=== PATIENT | male | born 1955 ===

== ENCOUNTER 2020-06-30 08:12 | Outpatient (REF) | payer OTHER, SELFPAY ==
[2020-06-30 09:23] LABS: Hematocrit 45.2 % (42-52); Hemoglobin 15.4 g/dl (14.0-18.0); Mean Corpuscular HGB Conc 34.1 g/dl (31.0-36.0); Mean Corpuscular Hemoglobin 31.3 pg (27.0-33.0); Mean Corpuscular Volume 91.9 fL (80-98); Mean Platelet Volume 11.8 fL (9.4-12.4); Platelet Count 240 X10*3/uL (160-400); Red Blood Count 4.92 X10*6/uL (4.60-5.80); Red Cell Distribution Width 13.1 % (11.0-16.0); White Blood Count 5.8 X10*3/uL (4.8-10.8)
[2020-06-30 09:49] LABS: Alanine Aminotransferase 33 U/L (0-40); Albumin Level 4.9 g/dL (3.5-5.0); Alkaline Phosphatase 115 U/L (39-117); Anion Gap 12 (12-20); Aspartate Amino Transferase 26 U/L (5-37); Bilirubin Total 1.4 mg/dL (0.0-1.0); Blood Urea Nitrogen 14 mg/dL (9-16); Calcium 9.3 mg/dL (8.4-10.2); Carbon Dioxide 27 mmol/L (22-29); Chloride 104 mmol/L (96-108); Cholesterol 268 mg/dL; Estimated Glomerular Filt Rate > 60; Glucose Fasting 101 mg/dL (60-99); HDL Cholesterol 40 mg/dL; LDL Cholesterol Calculated 190 mg/dl; Potassium 4.2 mmol/L (3.3-5.1); Sodium 139 mmol/L (135-145); Total Protein 7.8 g/dL (6.5-8.0); Triglycerides 190 mg/dL
[2020-06-30 10:10] LABS: Prostate Specific Antigen Scr 0.74 ng/mL (<0.05-4.0); TSH reflex Free T4 0.82 uIU/mL (0.32-4.0)
[2020-06-30 10:17] LABS: Estimated Average Glucose 120 mg/dL; Hemoglobin A1c % 5.8 %
== END 2020-06-30 08:13 | disposition home or self-care (01) ==
LOC: HO.LAB 08:12
PROVIDERS: Visit Provider Physician Assistant
DX: I10 Essential (primary) hypertension (principal); Z13.1 Encounter for screening for diabetes mellitus; Z13.220 Encounter for screening for lipoid disorders; Z13.29 Encounter for screening for other suspected endocrine disorder; Z12.5 Encounter for screening for malignant neoplasm of prostate
CPT/HCPCS: 36415; 80053; 80061; 83036; 84153; 84443; 85027

== ENCOUNTER → 2020-07-06 14:36 | Outpatient (BNVA) | payer OTHER, SELFPAY | PROVIDERS: Visit Provider Nurse Practitioner Family ==

== ENCOUNTER 2020-08-22 07:57 | Day surgery (SDC) | payer OTHER, SELFPAY ==
[2020-08-15 14:00] VITALS: BMI 29.1
--- NOTE | 2020-08-18 08:44 | P.CONAN_ITS ---
Documented by User: Kaleigh Farley 08/18/20 08:45 HPI - Anesthesia Eval Consult details Narrative: 64yo M for Colonoscopy PMFSH Active Problems Active Problems: All Active Problems (Updated 08/15/20 @ 13:41 by Claudia Rae) Annual physical exam (Acute) MDD (major depressive disorder) (Acute) Screening for diabetes mellitus (DM) (Acute) Screening for hypercholesterolemia (Acute) Screening for hypothyroidism (Acute) Colon cancer screening (Acute) Schizoaffective disorder (Acute) Past Medical History Medical History Depression Helicobacter pylori (H. pylori) Schizophrenia Family History Family History Father Emphysema lung Mother Kidney disease Sister Hypertension Cancer Brother No problems noted. Maternal Uncle Cancer Maternal Aunt Cancer Surgical History Surgical History H/O colonoscopy History of appendectomy History of esophagogastroduodenoscopy (EGD) Social History Social History Household Members: None Are you a primary aged or disabled care worker to a significant other at home: No Do you presently have visiting nurse or other home services: No Alcohol intake: current Alcohol intake frequency: does not drink Smoking Status: Former smoker Advance Directives: No Advance Directives Information Provided: No Advance Directives on File: No Recently lost weight without trying: No Current occupational status: retired [employer] Allergies Allergy/AdvReac Type Severity Reaction Status Date / Time No Known Allergies Allergy Verified 08/15/20 13:39 Home Medications Medication Instructions Recorded Confirmed Last Taken Type quetiapine 200 mg tablet 200 mg PO BEDTIME 06/15/20 08/15/20 Unknown History risperidone 1 mg tablet 1 mg PO BEDTIME 06/15/20 08/15/20 Unknown History sertraline 50 mg tablet 50 mg PO DAILY 06/15/20 08/15/20 Unknown History Exam Exam Date and Time: August 18, 2020 0844 Height,Weight and Vital Signs: Height 5 ft 7 in Weight 84.368 kg Assessment and Plan Assessment Anesthesia Assessment: Chart Reviewed Documented by User: Liset Young 08/22/20 08:57 PMFSH Past Medical History Medical History Depression Helicobacter pylori (H. pylori) Schizophrenia Family History Family History Father Emphysema lung Mother Kidney disease Sister Hypertension Cancer Brother No problems noted. Maternal Uncle Cancer Maternal Aunt Cancer Surgical History Surgical History H/O colonoscopy History of appendectomy History of esophagogastroduodenoscopy (EGD) Social History Social History Household Members: None Are you a primary aged or disabled care worker to a significant other at home: No Do you presently have visiting nurse or other home services: No Alcohol intake: current Alcohol intake frequency: does not drink Smoking Status: Former smoker Advance Directives: No Advance Directives Information Provided: No Advance Directives on File: No Recently lost weight without trying: No Current occupational status: retired Meds Allergies Allergy/AdvReac Type Severity Reaction Status Date / Time No Known Allergies Allergy Verified 08/15/20 13:39 Home Medications Medication Instructions Recorded Confirmed Last Taken Type quetiapine 200 mg tablet 200 mg PO BEDTIME 06/15/20 08/15/20 Unknown History risperidone 1 mg tablet 1 mg PO BEDTIME 06/15/20 08/15/20 Unknown History sertraline 50 mg tablet 50 mg PO DAILY 06/15/20 08/15/20 Unknown History Exam Airway Mallampati Class: II TM Dist: >3cm Neck ROM: Full
[2020-08-22 08:55] VITALS: BP 118/71; PULSE 63; RESP 18; TEMP 36.6; O2SAT 99
[2020-08-22] MEDS: Lactated Ringers 1,000 ML 100 ML IVCONT (09:01)
--- NOTE | 2020-08-22 09:51 | P.OP_ITS ---
Operative Note Operative Note Date of Service: 08/22/20 Narrative: Pre-op diagnosis: Colon cancer screening Post-op diagnosis: other (Internal hemorrhoids, fair to poor prep) Procedure: COLONOSCOPY TILL CECUM Consent: Indications for the procedure and potential complications of bleeding, perforation, reaction to medications and missed diagnosis were discussed with the patient and informed consent was obtained. Instrument: Olympus PCF H 190 L variable stiffness pediatric colonoscope Monitoring: Vital signs and clinical assessment, intermittent blood pressure monitoring, continuous EKG monitoring, Pulse oximetry and Carbon Dioxide monitoring were done throughout the procedure. Colon withdrawl time was 20 minutes. Procedure: The patient was placed in the left lateral decubitis position and pre-procedure medications were administered. After a digital rectal examination of the ano-rectum, the video colonoscope was inserted into the rectum and advanced through the colon to the cecum. The colonoscope was slowly withdrawn in a retrograde panoramic fashion and the colon mucosa was carefully examined including a retroflexed view of the rectum. Findings and interventions are described below. Procedure Difficulty: Without difficulty Findings: Terminal Ileum: Not evaluated Cecum: Partially evaluated to to fair prep (poor in some areas of the colon) Ascending Colon: Partially evaluated to to fair prep (poor in some areas of the colon) Transverse Colon: Partially evaluated to to fair prep (poor in some areas of the colon) Descending Colon: Partially evaluated to to fair prep (poor in some areas of the colon) Sigmoid Colon: Partially evaluated to to fair prep (poor in some areas of the colon) Rectum: Partially evaluated to to fair prep (poor in some areas of the colon) Ano-rectum: Moderate internal hemorrhoids Colon preparation: Fair and poor in some areas of the colon despite copious irrigation Impression and Post Procedure Diagnosis: Colonoscopy Findings: No polyps were detected. Fair and poor in some areas of the colon despite copious irrigation Moderate hemorrhoids on retroflexed exam. Plan: Await pathology results Patient has an appointment on 09/19/20 in the [facility] with Yenny Peralta FNP-BC. Check a stool FIT test and if negative repeat Colonoscopy in 5 years due to fair to poor prep. Above findings were reviewed with the patient Surgeon: Марина Bailey MD Anesthesia: MAC (Leyla Chahal CRNA) Mold Press Operator: Hermila Staples Estimated blood loss (mL): 0 Pathology: none sent Condition: stable Disposition: PACU
--- NOTE | 2020-08-22 09:51 | MHC.SHP ---
Pre-Procedural Eval Section A The patient is an INPATIENT: No The History & Physical has been completed within 30 days and I have reviewed it.: No Section B Chief Complaint: Screening Details of Present Illness: Colon cancer screening Relevant Family History (Specify if Yes): Yes Relevant Social History: None Present Medications: see Short Stay Collaborative assessment Medical History: Significant History (H Pylori infection) History of Previous Operations: Relevant previous surgery/procedure and date(s) (H/O colonoscopy History of appendectomy History of esophagogastroduodenoscopy (EGD)) Allergies: Allergies Allergy/AdvReac Type Severity Reaction Status Date / Time No Known Allergies Allergy Verified 08/15/20 13:39 Review of Systems Sugical H&P ROS: Negative: Constitution, Cardiovascular, Respiratory and Gastrointestinal Exam Surgical H&P Exam: Normal: Heart, Normal: Lungs, Normal: Extremities and Normal: Abdomen Plan Diagnosis/Plan: Unchanged I have reviewed the history and physical and performed a pertinent physical examination on my patient. No changes have occurred unless specified.
[2020-08-22 10:31] VITALS: BP 80/48; PULSE 76; RESP 14; TEMP 36.9; O2SAT 96
[2020-08-22 10:46] VITALS: BP 106/71; PULSE 74; RESP 18; O2SAT 99
[2020-08-22 11:01] VITALS: BP 112/86; PULSE 62; RESP 18; O2SAT 97
== END 2020-08-22 11:30 ==
LOC: HO.SSS 07:57
PROVIDERS: Visit Provider Internal Medicine Gastroenterology
PROC: 0DJD8ZZ Inspection of Lower Intestinal Tract, Via Natural or Artificial Opening Endoscopic (ICD-10-PCS; CPT 45378; principal; 2020-08-22 09:10)
DX: Z12.11 Encounter for screening for malignant neoplasm of colon (principal); K64.8 Other hemorrhoids; F20.9 Schizophrenia, unspecified; Z86.19 Personal history of other infectious and parasitic diseases; Z87.891 Personal history of nicotine dependence; Z79.899 Other long term (current) drug therapy
CPT/HCPCS: 45378

== ENCOUNTER → 2020-09-19 14:33 | Outpatient (BNVA) | payer MEDICARE, SELFPAY | PROVIDERS: Visit Provider Nurse Practitioner Family | DX: Z98.890 Other specified postprocedural states (principal) | CPT/HCPCS: Q3014 ==

== ENCOUNTER → 2020-11-27 13:19 | Outpatient (BNVA) | payer MEDICARE, SELFPAY | PROVIDERS: Visit Provider Nurse Practitioner Family ==

== ENCOUNTER 2021-07-25 10:31 | Outpatient (REF) | payer MEDICARE, SELFPAY ==
[2021-07-25 11:07] LABS: Hematocrit 45.6 % (42.0-52.0); Hemoglobin 15.6 g/dl (14.0-18.0); Mean Corpuscular HGB Conc 34.2 g/dl (31.0-36.0); Mean Corpuscular Volume 90.7 fL (80.0-98.0); Mean Platelet Volume 11.5 fL (9.4-12.4); Platelet Count 217 X10*3/uL (160-400); Red Blood Count 5.03 X10*6/uL (4.60-5.80); Red Cell Distribution Width 13.2 % (11.0-16.0); White Blood Count 5.5 X10*3/uL (4.8-10.8)
[2021-07-25 11:16] LABS: Estimated Average Glucose 120 mg/dL; Hemoglobin A1c % 5.8 %
[2021-07-25 12:05] LABS: Alanine Aminotransferase 29 U/L (0-40); Albumin Level 4.5 g/dL (3.5-5.0); Alkaline Phosphatase 99 U/L (39-117); Anion Gap 12 (12-20); Aspartate Amino Transferase 25 U/L (5-37); Bilirubin Total 1.4 mg/dL (0.0-1.0); Blood Urea Nitrogen 14 mg/dL (9-16); Carbon Dioxide 25 mmol/L (22-29); Chloride 104 mmol/L (96-108); Cholesterol 251 mg/dL; Estimated Glomerular Filt Rate > 60; Glucose Fasting 111 mg/dL (60-99); HDL Cholesterol 39 mg/dL; LDL Cholesterol Calculated 162 mg/dl; Potassium 4.4 mmol/L (3.3-5.1); Sodium 137 mmol/L (135-145); Total Protein 7.9 g/dL (6.5-8.0); Triglycerides 253 mg/dL
[2021-07-25 12:49] LABS: TSH reflex Free T4 0.82 uIU/mL (0.32-4.0)
[2021-07-26 15:35] LABS: Prostate Specific Antigen Scr 1.15 ng/mL (<0.05-4.0)
== END 2021-07-25 10:32 | disposition home or self-care (01) ==
LOC: HO.LAB 10:31
PROVIDERS: PCP Physician Assistant; Visit Provider Physician Assistant
DX: Z12.5 Encounter for screening for malignant neoplasm of prostate (principal); Z13.1 Encounter for screening for diabetes mellitus; E78.2 Mixed hyperlipidemia
CPT/HCPCS: 36415; 80053; 80061; 83036; 84153; 84443; 85027

== ENCOUNTER 2021-12-30 16:42 | Emergency (ER) | payer MEDICARE, MEDICAID, SELFPAY ==
[2021-12-30 16:51] VITALS: BP 144/85; PULSE 79; RESP 18; TEMP 36.7; O2SAT 95; BMI 26.6
--- NOTE | 2021-12-30 18:14 | ED.NAVMDI ---
HPI - Nausea/Vomiting/Diarrhea General Chief complaint: Nausea/Vomiting/Diarrhea Stated complaint: Vomiting/Hiccups Time Seen by Provider: 12/30/21 18:14 Source: patient and family Mode of arrival: ambulatory Limitations: no limitations History of Present Illness HPI Narrative: Patient history of schizophrenia been having hiccups for last 5 days followed by vomiting 6 to 7 times a day no diarrhea no abdominal pain never had similar complaints in the past , unable to hold any liquids or solids or his medication down because of hiccups and vomiting Related Data Home Medications Medication Instructions Recorded Confirmed quetiapine 200 mg tablet 200 mg PO BEDTIME 06/15/20 06/18/21 risperidone 1 mg tablet 1 mg PO BEDTIME 06/15/20 06/18/21 sertraline 50 mg tablet 50 mg PO DAILY 06/15/20 06/18/21 Previous Rx's Medication Instructions Recorded baclofen 10 mg tablet 10 mg PO TID PRN hiccups #20 tabs 12/30/21 omeprazole 40 mg capsule,delayed 40 mg PO DAILY #30 caps 12/30/21 release Allergies Allergy/AdvReac Type Severity Reaction Status Date / Time No Known Allergies Allergy Verified 12/30/21 16:50 Review of Systems Review of Systems: Yes all other systems are reviewed and are negative PMFSH Past Medical History Medical History Depression Helicobacter pylori (H. pylori) Schizophrenia Surgical History H/O colonoscopy History of appendectomy History of esophagogastroduodenoscopy (EGD) Family History Family History Father Emphysema lung Mother Kidney disease Sister Hypertension Cancer Brother No problems noted. Maternal Uncle Cancer Maternal Aunt Cancer Social History Social History Household Members: None Are you a primary career center director to a significant other at home: No Do you presently have visiting nurse or other home services: No Alcohol intake: current Alcohol intake frequency: does not drink Patient Tobacco Use Status: Former Tobacco user Quit Date: 1969 Use of substances other than those prescribed or required for medical reasons: Yes Substance Use Type: Crack/Cocaine Advance Directives: No Advance Directives Information Provided: No Current occupational status: retired Physical Exam Vital Signs: Vital Signs: Last Vital Signs Temp 98.4 F 12/30/21 20:02 Pulse 64 12/30/21 20:02 Resp 18 12/30/21 20:02 BP 142/83 H 12/30/21 20:02 Pulse Ox 96 12/30/21 20:02 O2 Del Method 12/30/21 20:02 BMI result Body Mass Index 26.6 Appearance: Alert. Oriented X3. No acute distress. Eyes: PERRLA, No Nystagmus no pallor or icterus ENT: Pharynx normal. Oral Mucosa moist Neck: Normal inspection. Neck supple. CVS: Normal heart rate and rhythm. Pulses normal. Respiratory: No respiratory distress. Equal air entry bilateral, no wheezing/rales/rhonchi Abdomen: Soft and nontender. Bowel sounds are present, no mass palpable, no CVA tenderness Skin: Skin warm and dry. Normal skin color. Normal skin turgor. Extremities: No lower extremity edema. No calf tenderness Neuro: Oriented X 3. No motor deficit. No sensory deficit.No cerebellar signs , cranial nerves II-XII intact MDM - Nausea/Vomiting/Diarrhea MDM Narrative Medical decision making narrative: Patient with intractable hiccups improved after IV Compazine and baclofen patient able to tolerate p.o. fluids will discharge patient home on baclofen tablets Lab Data Attestation: I reviewed the patient's lab results. Result diagrams: 12/30/21 18:40 12/30/21 19:42 Labs: Lab Results 12/30/21 12/30/21 12/30/21 Range/Units 18:40 18:40 19:42 WBC 10.5 (4.8-10.8) X10*3/uL RBC 5.16 (4.60-5.80) X10*6/uL Hgb 16.1 (14.0-18.0) g/dl Hct 46.0 (42.0-52.0) % MCV 89.1 (80.0-98.0) fL MCH 31.2 (27.0-33.0) pg MCHC 35.0 (31.0-36.0) g/dl RDW 12.5 (11.0-16.0) % Plt Count 241 (160-400) X10*3/uL MPV 11.4 (9.4-12.4) fL Immature Gran % (Auto) 0.4 (0.0-0.4) % Neut % (Auto) 68.2 (45-73) % Lymph % (Auto) 19.0 L (20-40) % [place] % (Auto) 11.1 H (2-11) % Eos % (Auto) 0.6 (0-4) % Baso % (Auto) 0.7 (0-2) % Lymph # (Auto) 2.0 (1.2-4.9) X10*3/uL [place] # (Auto) 1.2 (0.1-1.2) X10*3/uL Eos # (Auto) 0.1 (0.0-0.4) X10*3/uL Baso # (Auto) 0.1 (0.0-0.2) X10*3/uL Abs Immat Gran (auto) 0.04 H (0.00-0.03) X10*3/uL Absolute Neuts (auto) 7.2 (2.0-8.3) x10*3/uL Absolute Nucleated RBC 0.000 (0.0-0.012) X10*3/uL Nucleated RBC % (auto) 0.0 (0.0-0.2) /100WBC Sodium 139 (135-145) mmol/L Potassium 3.3 D (3.3-5.1) mmol/L Chloride 102 (96-108) mmol/L Carbon Dioxide 26 (22-29) mmol/L Anion Gap 14 (12-20) BUN 10 (9-16) mg/dL Creatinine 1.10 (0.5-1.4) mg/dL Estim Creat Clear Calc 61.7 Estimated GFR > 60 Random Glucose 104 (60-115) mg/dL Calcium 8.3 L D (8.4-10.2) mg/dL Magnesium 2.0 (1.6-2.6) mg/dL Total Bilirubin 1.3 H (0.0-1.0) mg/dL AST 35 (5-37) U/L ALT 25 (0-40) U/L Alkaline Phosphatase 84 (39-117) U/L Total Protein 7.0 (6.5-8.0) g/dL Albumin 4.2 (3.5-5.0) g/dL Lipase 27 (8-78) U/L COVID-19 ([facility]ID) Negative (Negative) COVID-19 Clin Com See Note Discharge Plan Discharge Clinical Impression: Intractable hiccups Patient Disposition: Home, Self-Care Instructions: Hiccups (ED) Additional Instructions: Take medications as prescribed for hiccups Follow with PCP as needed Prescriptions: New baclofen 10 mg tablet 10 mg PO TID PRN (Reason: hiccups) Qty: 20 0RF omeprazole 40 mg capsule,delayed release(DR/EC) 40 mg PO DAILY Qty: 30 0RF No Action risperidone 1 mg tablet 1 mg PO BEDTIME sertraline 50 mg tablet 50 mg PO DAILY quetiapine 200 mg tablet 200 mg PO BEDTIME Interventions: ED Discharge Assessment Last Done: 12/30/21 22:44 Discharge Date/Time: 12/30/21 22:45 Print Language: Maldivian
[2021-12-30 18:28] VITALS: BP 135/83; PULSE 78; RESP 20; TEMP 37.3; O2SAT 95
[2021-12-30] MEDS: Prochlorperazine Edisylate 10 MG/2 ML VIAL IVPUSH (18:42)
[2021-12-30] MEDS: 0.9 % Sodium Chloride 1,000 ML 999 ML IV (18:42)
[2021-12-30 18:45] LABS: MANUAL DIFF FLAG NO
[2021-12-30 19:04] LABS: Basophils Absolute Auto 0.1 X10*3/uL (0.0-0.2); Basophils Percent Auto 0.7 % (0-2); Eosinophils Absolute Auto 0.1 X10*3/uL (0.0-0.4); Eosinophils Percent Auto 0.6 % (0-4); Hemoglobin 16.1 g/dl (14.0-18.0); Imm Gran Abs Auto 0.04 X10*3/uL (0.00-0.03); Imm Gran Pct Auto 0.4 % (0.0-0.4); Mean Corpuscular Hemoglobin 31.2 pg (27.0-33.0); Mean Corpuscular Volume 89.1 fL (80.0-98.0); Mean Platelet Volume 11.4 fL (9.4-12.4); Monocytes Absolute Auto 1.2 X10*3/uL (0.1-1.2); Monocytes Percent Auto 11.1 % (2-11); Neutrophils Absolute Auto 7.2 x10*3/uL (2.0-8.3); Neutrophils Percent Auto 68.2 % (45-73); Platelet Count 241 X10*3/uL (160-400); Red Blood Count 5.16 X10*6/uL (4.60-5.80); Red Cell Distribution Width 12.5 % (11.0-16.0); White Blood Count 10.5 X10*3/uL (4.8-10.8)
[2021-12-30 19:06] LABS: COVID-19 Test Negative (Negative); IDNOW Serial# 16C4AD1C
[2021-12-30 20:02] VITALS: BP 142/83; PULSE 64; RESP 18; TEMP 36.9; O2SAT 96
[2021-12-30 20:04] LABS: Alanine Aminotransferase 25 U/L (0-40); Albumin Level 4.2 g/dL (3.5-5.0); Alkaline Phosphatase 84 U/L (39-117); Anion Gap 14 (12-20); Aspartate Amino Transferase 35 U/L (5-37); Bilirubin Total 1.3 mg/dL (0.0-1.0); Blood Urea Nitrogen 10 mg/dL (9-16); Calcium 8.3 mg/dL (8.4-10.2); Carbon Dioxide 26 mmol/L (22-29); Chloride 102 mmol/L (96-108); Creatinine Clr Calc Pharmacy 61.7; Estimated Glomerular Filt Rate > 60; Glucose Random 104 mg/dL (60-115); Lipase 27 U/L (8-78); Potassium 3.3 mmol/L (3.3-5.1); Sodium 139 mmol/L (135-145)
[2021-12-30] MEDS: Pantoprazole Sodium 40 MG/10 ML VIAL IVPUSH (20:56)
[2021-12-30] MEDS: Baclofen 10 MG TABLET PO (21:28)
[2021-12-30] MEDS: Metoclopramide HCl 10 MG/2 ML VIAL IVPUSH (21:28)
[2021-12-30] MEDS: Lidocaine HCl Viscous 2 % 15 ML SOLUTION MUCOUS MEM (21:28)
== END 2021-12-30 22:45 | disposition home or self-care (01) ==
PROVIDERS: Emergency Provider Internal Medicine; PCP Physician Assistant
DX: R11.2 Nausea with vomiting, unspecified (principal); R06.6 Hiccough; Z79.899 Other long term (current) drug therapy; Z20.822 Contact with and (suspected) exposure to COVID-19; Z87.891 Personal history of nicotine dependence
CPT/HCPCS: 80053; 83690; 83735; 85025; 87635; 96374; 96375; 96376; 99284; J2765

== ENCOUNTER 2022-07-30 08:45 | Outpatient (REF) | payer MEDICARE, MEDICAID, SELFPAY ==
[2022-07-30 09:40] LABS: Hematocrit 43.9 % (42.0-52.0); Hemoglobin 15.1 g/dl (14.0-18.0); Mean Corpuscular HGB Conc 34.4 g/dl (31.0-36.0); Mean Corpuscular Hemoglobin 30.8 pg (27.0-33.0); Mean Corpuscular Volume 89.4 fL (80.0-98.0); Mean Platelet Volume 11.5 fL (9.4-12.4); Platelet Count 198 X10*3/uL (160-400); Red Blood Count 4.91 X10*6/uL (4.60-5.80); Red Cell Distribution Width 13.5 % (11.0-16.0); White Blood Count 6.5 X10*3/uL (4.8-10.8)
[2022-07-30 10:28] LABS: Alanine Aminotransferase 40 U/L (0-40); Albumin Level 4.3 g/dL (3.5-5.0); Alkaline Phosphatase 99 U/L (39-117); Anion Gap 14 (12-20); Aspartate Amino Transferase 30 U/L (5-37); Blood Urea Nitrogen 10 mg/dL (9-16); Calcium 9.4 mg/dL (8.4-10.2); Carbon Dioxide 24 mmol/L (22-29); Chloride 105 mmol/L (96-108); Cholesterol 278 mg/dL; Estimated Glomerular Filt Rate > 60; Glucose Fasting 101 mg/dL (60-99); HDL Cholesterol 39 mg/dL; LDL Cholesterol Calculated 169 mg/dl; Potassium 4.1 mmol/L (3.3-5.1); Sodium 139 mmol/L (135-145); Total Protein 7.4 g/dL (6.5-8.0); Triglycerides 352 mg/dL
[2022-07-30 10:36] LABS: Prostate Specific Antigen Scr 1.02 ng/mL (<0.05-4.0); TSH reflex Free T4 1.33 uIU/mL (0.32-4.0)
== END 2022-07-30 08:46 | disposition home or self-care (01) ==
LOC: HO.LAB 08:45
PROVIDERS: PCP Physician Assistant; Visit Provider Physician Assistant
DX: E78.2 Mixed hyperlipidemia (principal); Z13.29 Encounter for screening for other suspected endocrine disorder; Z12.5 Encounter for screening for malignant neoplasm of prostate
CPT/HCPCS: 36415; 80053; 80061; 84153; 84443; 85027

== ENCOUNTER 2023-07-21 10:17 | Outpatient (AMB) | payer OTHER, SELFPAY ==
--- NOTE | 2023-07-21 10:32 | MHC.PC.OV ---
Vital Signs 07/21/23 10:48 Height 5 ft 7 in Weight 174 lb BMI 27.2 BP 102/70 Blood Pressure Location Lt brachial Position Sitting Pulse 70 Pulse Source Pulse Oximeter Pulse Oximetry (%) 96 Oxygen Delivery Method Room Air Intake Visit Reasons: Annual Exam Intake Note: Patient is here today for a physical. Manager Integrity Required: No Accompanied by: sister-Deirdre Allergies No Known Allergies Allergy (Verified 07/21/23 10:56) Medication List - Last Reconciled 07/21/23 by Yakov Dai PA-C quetiapine 200 mg PO BEDTIME risperidone 2 mg PO BEDTIME sertraline 50 mg PO DAILY Tobacco use date assessed: 07/21/23 Fall risk assessment: No Falls in past year Last assessed Fall Risk: 07/21/23 Dental Screening Dental Screen Date: 07/21/23 Did you have a dental visit in the last 12 months?: Yes Did you have a dental problem in the last 6 months where you did not have access to dental care?: No Was dental information given to patient?: Patient has dentist HPI Annual Exam HPI Details Patient is a 67 -year-old male here today for annual physical. ?Past medical history significant for depression, schizophrenia. Today he presents with his sister whom is concerned about his mental health. She reports he has been feeling very paranoid as of late to the point he has not been staying at his own apartment due to feeling that someone is after him. She does admit that maximal is somewhat noncompliant with his medication and over the last 2 weeks have been helping him take his medication on a daily basis. They are asking for help at home with a RESIDENTIAL CONSTRUCTION INSTRUCTOR and or visiting nurse to help him administer medication. She will speak with his psychiatrist about changing his antipsychotic .. Vaccine : UTD with flu vaccine, TDap, up-to-date with COVID vaccine, up-to-date with shingles vaccine needs pneumonia vaccine. . .. Colonoscopy:? Patient received screening colonoscopy in 2020 repeat 5 years . Laboratory Tests 07/25/21 12/30/21 10:51 18:40 RBC 5.16 Triglycerides 253 Cholesterol 251 PFSH Medical History Depression Schizophrenia Helicobacter pylori (H. pylori) Surgical History H/O colonoscopy History of esophagogastroduodenoscopy (EGD) History of appendectomy Family History Father Emphysema lung Mother Kidney disease Sister Hypertension Cancer Brother No problems noted. Maternal Uncle Cancer Maternal Aunt Cancer Social History (Updated 07/21/23 @ 11:00 by Yakov Dai PA-C) Household Members: None Housing: Apartment Are you a primary palliative care coordinator to a significant other at home: No Do you presently have visiting nurse or other home services: No Alcohol intake: never Patient Tobacco Use Status: Former Tobacco user Quit Date: 1969 e-Cigarette/Vaping Use: Never Used Substance Use Type: Crack/Cocaine service: No Current occupational status: retired Cognitive needs: No Hearing needs: No Vision needs: No Questionnaire PHQ-9 Over the last 2 weeks, how often have you been bothered by any of the following problems? 1. Little interest or pleasure in doing things: not at all 2. Feeling down, depressed, or hopeless: not at all 3. Trouble falling or staying asleep, or sleeping too much: not at all 4. Feeling tired or having little energy: not at all 5. Poor appetite or overeating: not at all 6. Feeling bad about yourself - or that you are a failure or have let yourself or your family down: not at all 7. Trouble concentrating on things, such as reading the newspaper or watching television: not at all 8. Moving or speaking so slowly that other people could have noticed. Or the opposite - being so fidgety or restless that you have been moving around a lot more than usual: not at all 9. Thoughts that you would be better off or of hurting yourself in some way: not at all Total score: 0 Depression Screening Interpretation: Negative Depression Screening Done: Yes 21254 - PHQ-9 Billing: Yes Source: Developed by Drs. Juan Antonio Clemente, Ansley Jamison, Oscar Fallon and colleagues, with an educational chester from [employer]. Thrive Questionnaire Date Thrive assessed: 07/21/23 I am a: Patient What is your living situation today?: I have a steady place to live Within the past 12 months, did the food you bought not last and you didn't have the money to get more?: Never true Within the past 12 months, did you worry whether your food would run out before you got money to buy more?: Never true Do you have trouble paying for medicines?: No Do you have trouble getting transportation to medical appointments?: No Do you have trouble paying your heating and electricity bill?: No Do you have trouble taking care of your child, family member or friend?: No Do you have trouble with day-to-day activities such as bathing, preparing meals, shopping, managing finances, etc.?: No Are you currently unemployed and looking for a job?: No Are you interested in more education?: No Please select the resources that you would like help with: None THRIVE Score: 0 AUDIT C Alcohol Use Questionnaire (AUDIT-C) 1. How often do you have a drink containing alcohol?: Monthly or less 2. How many drinks containing alcohol do you have on a typical day when you are drinking?: 1 or 2 3. How often do you have six or more drinks on one occasion?: Never Total Score: 1 REYES-7 AMB Questionnaire REYES-7 Date REYES - 7 assessed: 07/21/23 Feeling nervous, anxious, or on edge: 0 = Not at all Not being able to stop or control worryin = Not at all Worrying too much about different things: 0 = Not at all Trouble relaxin = Not at all Being so restless that it is hard to sit still: 0 = Not at all Becoming easily annoyed or irritable: 0 = Not at all Feeling afraid as if something awful might happen: 0 = Not at all Total REYES-7 score (0-4 normal; 5-9 mild; 10-14 moderate; 15-21 severe): 0 Source: Developed by Drs. Juan Antonio Clemente, Ansley Jamison, Oscar Fallon and colleagues, with an educational chester from [employer]. REYES-7 Assessment Billing REYES-7 Assessment Tool: REYES-7 Assessment 15689 Review of Systems Const Denies body aches, Denies chills, Denies excessive sweating, Denies fatigue, Denies fever(s) and Denies headache(s) Eyes Denies blurry vision ENT Denies dysphagia, Denies vertigo, Denies dizziness, Denies headache(s), Denies hearing loss and Denies tinnitus Card Denies chest pain, Denies chest pain with activity, Denies syncope, Denies irregular heart rhythm and Denies dyspnea Resp Denies chest congestion, Denies cough, Denies hemoptysis, Denies dyspnea and Denies wheezing GI Denies abdominal pain, Denies melena, Denies hematochezia, Denies coffee ground emesis, Denies dysphagia, Denies diarrhea, Denies nausea and Denies vomiting Denies difficulty urinating, Denies dysuria, Denies urinary frequency, Denies urinary hesitancy and Denies urinary urgency Musc Denies arthralgias, Denies limited range of motion, Denies muscle cramps and Denies muscle weakness Skin/Breast Denies rash and Denies skin ulcer Neuro Denies Abnormal speech present, Denies confusion, Denies vertigo, Denies dizziness, Denies syncope, Denies headache(s), Denies memory loss and Denies seizure-like activity Psych Denies anxiety, Denies confusion, Denies depression, Denies memory loss, Denies panic attacks, Reports paranoia, Reports visual hallucinations and Reports tactile hallucinations Endo Denies excessive sweating, Denies fatigue, Denies flushing, Denies polydipsia and Denies polyuria Aller/Immun Denies wheezing Physical exam (Primary Care) Vital Signs: Last Vital Signs Pulse 70 07/21/23 10:48 BP 102/70 07/21/23 10:48 Pulse Ox 96 07/21/23 10:48 Oxygen Delivery Method Room Air 07/21/23 10:48 BMI result Body Mass Index 27.2 Tobacco/Smoking Status: Tobacco use Status Tobacco use date assessed 07/21/23 07/21/23 10:55 Patient Tobacco Use Status Former Tobacco user 07/21/23 11:00 e-Cigarette/Vaping Use Never Used 07/21/23 11:00 PHQ-9: PHQ-9 Score PHQ-9: Total score 0 07/21/23 10:59 Depression Screening Interpretation: Negative Thrive Assessment: Date of Thrive Assessment Date Thrive assessed 07/21/23 07/21/23 10:55 Const General: cooperative, comfortable, no acute distress, alert and awake; No confusion Orientation/consciousness: oriented to person, oriented to place, patient oriented x3 and No confusion HENIA Head: Yes normocephalic Ears: external ears normal and TM's normal bilaterally Face and sinus: No sinus tenderness Mouth: Normal oral and palatal mucosa present and tongue normal Teeth and gingiva: dentition normal and gingiva normal Throat: Yes posterior oropharynx normal, Yes tonsils normal and Yes uvula midline Eyes Conjunctivae: conjunctivae normal Sclerae: sclerae normal Pupils: Equal, round and reactive pupils present EOM: EOMs intact bilaterally Direct Ophthalmoscopy: No no photophobia Neck Neck: Yes no lymphadenopathy, No tender and Yes no JVD Thyroid: Thyroid normal Carotids: no bruits Chest Chest palpation & inspection: no tenderness Resp Effort & Inspection: normal respiratory effort, no audible wheezes, not labored and no stridor Auscultation: no crackles, no rales, no rhonchi and no wheezes Cardio Jugular venous distension: no JVD Rate: regular rate, not bradycardic and not tachycardic Rhythm: regular rhythm Bruits: no carotid bruits Peripheral pulses: Peripheral pulses 2+ throughout GI Inspection: Yes normal to inspection, No abdominal wall ecchymosis and No visible herniation Palpation (GI): Soft to palpation, nontender, no guarding, not rigid and No hepatosplenomegaly present Auscultation: normoactive bowel sounds General: Yes no CVA tenderness Back/Spine/Pelvis Back: no CVA tenderness and No back tenderness Cervical Spine: cervical ROM normal Thoracic/Lumbar Spine: thoracic and lumbar spine normal to inspection, straight leg raise negative bilaterally, No thoraco-lumbar ROM limited and No lumbar spinal tenderness Skin Lesions: no lesions Rashes: no rashes Wounds: no wounds Neuro General: oriented to person, oriented to place, patient oriented x3, CN's II-XI intact bilaterally and No confusion Cranial nerves: Yes Equal, round and reactive pupils present and Yes Normal accommodation reflex present Cognition (Neuro): normal cognition Speech: No Abnormal speech present Gait exam (Neuro): Normal gait present Motor exam (neuro): 5/5 motor strength present throughout Extrem Right upper extremity: full ROM; no cyanosis Left upper extremity: full ROM; no cyanosis Right lower extremity: no edema Left lower extremity: no edema Psych Appearance: grossly normal Mental Status: mental status grossly normal Affect: normal affect Attitude: cooperative Thought process: Normal thought process present Assessment and Plan Assessment & Plan (1) Annual physical exam: Code(s): Z00.00 - Encounter for general adult medical examination without abnormal findings (2) Schizoaffective disorder: Code(s): F25.9 - Schizoaffective disorder, unspecified Qualifiers: Schizoaffective disorder type: depressive Qualified Code(s): F25.1 - Schizoaffective disorder, depressive type Plan: Patient does have a psychiatrist -[facility]. He presents today with his sister whom is concerned about his mental health. He apparently is not too compliant with his mental health medication has had some breakthrough hallucinations auditory and visual. He is somewhat paranoid to live in his house and now living with his brother and sister. Family is asking for RESIDENTIAL CONSTRUCTION INSTRUCTOR services and home VNA to help administer medication. (3) HLD (hyperlipidemia): Code(s): E78.5 - Hyperlipidemia, unspecified Qualifiers: Hyperlipidemia type: mixed hyperlipidemia Qualified Code(s): E78.2 - Mixed hyperlipidemia Plan: Noted elevated total cholesterol on most recent labs. At this time will not commence statin medication. He will work on lifestyle modifications on reducing high cholesterol foods in his diet. (4) MDD (major depressive disorder): Code(s): F32.9 - Major depressive disorder, single episode, unspecified Qualifiers: Active/Remission status: currently active Major depression episode severity: mild Major depression recurrence: recurrent Qualified Code(s): F33.0 - Major depressive disorder, recurrent, mild Plan: He continues to follow psychiatrist and mental health therapist at [facility]. Has been having some difficulty staying compliant with his mental health medications. Orders: Orders Lipid Panel 07/21/23 E78.2 - Mixed hyperlipidemia Comprehensive [place]. Panel Fast 07/21/23 Z13.1 - Encounter for screening for diabetes mellitus Prostate Specific Antigen Scr 07/21/23 E78.2 - Mixed hyperlipidemia, Z12.5 - Encounter for screening for malignant neoplasm of prostate Referrals [facility] Referral F25.1 - Schizoaffective disorder, depressive type Coding Level of Care Code Est Pt Prev Care >65y(49146) Diagnoses Annual physical exam Z00.00 Schizoaffective disorder, depressive type F25.1 Schizoaffective disorder type: depressive Mixed hyperlipidemia E78.2 Hyperlipidemia type: mixed hyperlipidemia Mild episode of recurrent major depressive disorder F33.0 Active/Remission status: currently active Major depression episode severity: mild Major depression recurrence: recurrent Additional Codes REYES-7 Assessment Billing - REYES-7 Assessment Tool: REYES-7 Assessment 83694 ([id number])
[2023-07-21 10:48] VITALS: BP 102/70; PULSE 70; O2SAT 96; BMI 27.2
== END 2023-07-21 11:18 | disposition home or self-care (01) ==
PROVIDERS: Visit Provider Physician Assistant
DX: Z00.00 Encounter for general adult medical examination without abnormal findings (principal); F25.1 Schizoaffective disorder, depressive type; E78.2 Mixed hyperlipidemia; F33.0 Major depressive disorder, recurrent, mild
CPT/HCPCS: 99397

== ENCOUNTER 2023-07-24 08:38 | Outpatient (REF) | payer MEDICARE, SELFPAY ==
[2023-07-24 09:54] LABS: Alanine Aminotransferase 20 U/L (0-40); Albumin Level 4.4 g/dL (3.5-5.0); Alkaline Phosphatase 117 U/L (39-117); Anion Gap 12 (12-20); Aspartate Amino Transferase 19 U/L (5-37); Bilirubin Total 0.9 mg/dL (0.0-1.0); Blood Urea Nitrogen 13 mg/dL (9-16); Calcium 9.7 mg/dL (8.4-10.2); Carbon Dioxide 28 mmol/L (22-29); Chloride 104 mmol/L (96-108); Cholesterol 271 mg/dL (<200); Estimated Glomerular Filt Rate > 60; Glucose Fasting 103 mg/dL (60-99); HDL Cholesterol 44 mg/dL (>40); LDL Cholesterol Calculated 191 mg/dL (<100); Sodium 140 mmol/L (135-145); Total Protein 8.1 g/dL (6.5-8.0); Triglycerides 181 mg/dL (<150)
[2023-07-24 10:13] LABS: Prostate Specific Antigen Scr 0.93 ng/mL (<0.05-4.0)
== END 2023-07-24 08:39 | disposition home or self-care (01) ==
LOC: HO.LAB 08:38
PROVIDERS: PCP Physician Assistant; Visit Provider Physician Assistant
DX: Z12.5 Encounter for screening for malignant neoplasm of prostate (principal); Z13.1 Encounter for screening for diabetes mellitus; E78.2 Mixed hyperlipidemia
CPT/HCPCS: 36415; 80053; 80061; 84153

== ENCOUNTER 2023-12-22 14:24 | Outpatient (AMB) | payer OTHER, SELFPAY ==
[2023-12-22 14:27] VITALS: BP 110/76; PULSE 63; O2SAT 94; BMI 30.5
--- NOTE | 2023-12-22 14:27 | A.OFFPC_ITS ---
Vital Signs 12/22/23 14:27 Height 5 ft 7 in Weight 195 lb BMI 30.5 BP 110/76 Blood Pressure Location Lt brachial Position Sitting Pulse 63 Pulse Source Pulse Oximeter Pulse Oximetry (%) 94 Oxygen Delivery Method Room Air Intake Visit Reasons: swollen feet Intake Note: pt c/o of bilateral foot swelling and redness with no relief Diesel Instructor Required: No Allergies No Known Allergies Allergy (Verified 12/22/23 14:27) Medication List - Last Reconciled 12/22/23 by Bisi Perez PA-C atorvastatin 10 mg PO DAILY 90 days quetiapine 200 mg PO BEDTIME risperidone 2 mg PO BEDTIME sertraline 50 mg PO DAILY Tobacco use date assessed: 07/21/23 Fall risk assessment: No Falls in past year Last assessed Fall Risk: 12/22/23 Dental Screening Dental Screen Date: 07/21/23 HPI swollen feet HPI Details Patient is a 67-year-old male here today for annual physical. Past medical history significant for depression, schizophrenia. Patient presents today with his sister who is translating for the duration of this appointment. Official inking machine tender was offered but declined. Patient states his bilateral leg swelling has been going on for several years and comes and goes. This last episode has been going on since his last appointment in July and he has not tried anything for the swelling. He also mentions he has toenail fungus on his left great toe which has been present for several months. biltateral leg swelling for two years which went away and has returned. has been having it since July. Toenail fungus. [facility] Medical History Depression Schizophrenia Helicobacter pylori (H. pylori) Surgical History H/O colonoscopy History of esophagogastroduodenoscopy (EGD) History of appendectomy Family History Father Emphysema lung Mother Kidney disease Sister Hypertension Cancer Brother No problems noted. Maternal Uncle Cancer Maternal Aunt Cancer Social History Household Members: None Housing: Apartment Are you a primary care associate to a significant other at home: No Do you presently have visiting nurse or other home services: No Alcohol intake: never Patient Tobacco Use Status: Former Tobacco user e-Cigarette/Vaping Use: Never Used Substance Use Type: Crack/Cocaine service: No Current occupational status: retired Cognitive needs: No Hearing needs: No Vision needs: No Questionnaire Thrive Questionnaire Date Thrive assessed: 07/21/23 AUDIT C Alcohol Use Questionnaire (AUDIT-C) 1. How often do you have a drink containing alcohol?: Monthly or less 2. How many drinks containing alcohol do you have on a typical day when you are drinking?: 1 or 2 3. How often do you have six or more drinks on one occasion?: Never Total Score: 1 REYES-7 AMB Questionnaire REYES-7 Date REYES - 7 assessed: 07/21/23 Source: Developed by Drs. Juan Antonio Clemente, Ansley Jamison, Oscar Fallon and colleagues, with an educational chester from [employer]. Review of Systems Const Denies body aches, Denies chills and Denies fever(s) Eyes Reports no additional complaints ENT Denies dizziness Card Denies chest pain, Denies edema, Reports leg edema and Denies dyspnea Resp Denies dyspnea GI Denies abdominal pain Reports no additional complaints Musc Reports no additional complaints and Denies abnormal gait Skin/Breast Reports as per HPI Neuro Denies abnormal gait and Denies dizziness Psych Reports no additional complaints Physical exam (Primary Care) Vital Signs: Last Vital Signs Pulse 63 12/22/23 14:27 BP 110/76 12/22/23 14:27 Pulse Ox 94 12/22/23 14:27 Oxygen Delivery Method Room Air 12/22/23 14:27 BMI result Body Mass Index 30.5 Tobacco/Smoking Status: Tobacco use Status Tobacco use date assessed 07/21/23 12/22/23 14:28 Patient Tobacco Use Status Former Tobacco user 12/22/23 14:28 e-Cigarette/Vaping Use Never Used 12/22/23 14:28 Thrive Assessment: Date of Thrive Assessment Date Thrive assessed 07/21/23 12/22/23 14:28 Const General: cooperative, healthy appearing, comfortable and no acute distress Orientation/consciousness: patient oriented x3 HENMT Head: Yes normocephalic Ears: hearing grossly normal bilaterally General nose exam: Normal external nose present Eyes General: appearance normal, both eyes and all related structures Conjunctivae: conjunctivae normal Neck Neck: Yes full ROM and Yes no lymphadenopathy Resp Effort & Inspection: normal respiratory effort Auscultation: clear to auscultation bilaterally, no crackles, no rales, no rhonchi and no wheezes Cardio Rate: regular rate Rhythm: regular rhythm Skin Other: Left great toe is discolored and thickened Neuro General: patient oriented x3 Gait exam (Neuro): Normal gait present Extrem Other: Bilateral nonpitting lower extremity swelling without overlying skin changes. Pulses, strength, and sensation intact bilaterally. General: Yes normal to inspection, Yes full ROM and No edema Psych Affect: normal affect Attitude: cooperative Insight: Good insight present (Psych) Judgement: Good judgement present (Psych) Assessment and Plan Assessment & Plan (1) Onychomycosis: Code(s): B35.1 - Tinea unguium Plan: Patient has toenail fungus of left great toe that has trialed [id number] remedies with no success. We will prescribe three-month course of terbinafine as liver function tests are within normal limits. We will also order for repeat liver labs after 1 month of therapy. (2) Leg swelling: Code(s): M79.89 - Other specified soft tissue disorders Plan: Patient has bilateral leg swelling that looks to be from venous insufficiency. No concern at this time for DVT or acute infection. Advised patient to increase daily exercise, trial compression stockings, and elevate legs when at home and resting. Follow up as needed for this concern. Plan This note was constructed using voice recognition software. While every effort has been made to ensure accuracy and stummel selector, still areas may have been included sometimes these areas may affect the content or meeting of the given symptoms. Total time spent caring for the patient today was 30 minutes. This includes time spent before the visit reviewing the chart, time spent during the visit, and time spent after the visit and documentation. Orders: Orders Liver Panel 1 Month B35.1 - Tinea unguium Medications: New terbinafine HCl 250 mg PO DAILY 3 months 90 tabs 0RF Coding Level of Care Code Est Pt Level 4 (04449) Diagnoses Onychomycosis B35.1 Leg swelling M79.89
== END 2023-12-22 15:01 | disposition home or self-care (01) ==
PROVIDERS: PCP Physician Assistant
DX: B35.1 Tinea unguium (principal); M79.89 Other specified soft tissue disorders
CPT/HCPCS: 99214

== ENCOUNTER 2024-09-09 07:35 | Outpatient (REF) | payer OTHER, SELFPAY ==
--- OUTSIDE RECORDS SUMMARY | 2024-09-09 07:38 | XMS_ITS | Encounter Summary ---
Author Organization [employer] [facility] Address [address] [place] [address] Care Team Providers Care Shoulder Boner Name Role Phone Unavailable Primary Care Provider Unavailabl e Encounter Details Date Type Department Care Team (Latest Contact Info) Description 02/07/2022 Abstract [facility] CONVERSIONS Dental, Provider, DDS Social History Tobacco Use Types Packs/Day Years Used Date Smoking Tobacco: Never Assessed Sex and Gender Information Value Date Recorded Sex Assigned at Male 03/04/2022 10:16 AM EDT Legal Sex Male 10:16 AM EDT Gender Identity Male 03/04/2022 10:16 AM EDT Sexual Orientation Straight 03/04/2022 10 :16 AM EDT documented as of this encounter Plan of Treatment Upcoming Encounters Date Type Department Care Team (Late st Contact Info) Description 01/26/2025 1:00 PM EDT Office Visit [facility] [address] [place] [address] [address] [place] [address] documented as of this encounter Visit Diagnoses Not on filedocumented in this encounter
--- OUTSIDE RECORDS SUMMARY | 2024-09-09 07:38 | XMS_ITS | Clinical Summary ---
Author Organization [employer] Address [address] [facility] 7[address] [place] [address] Care Team Providers Care Film Painter Name Role Phone Unavailable Primary Care Provider Unavailabl e Allergies No known active allergies Medications sertraline (Zoloft) 50 MG tablet Take 1 tablet by mouth at bed time. Active risperiDONE (RisperDAL) 1 MG tablet Take 1 tablet by mouth every 12 (twelve) hours. Active QUEtiapine (SEROquel) 200 MG tablet Take 1 tablet by mouth every 12 (twelve) hours. Active ibuprofen 800 MG tablet Take 1 tablet by mouth every 8 (eight) hours. 03/21/2022 Active baclofen (Lioresal) 10 MG tablet TAKE 1 TABLET BY MOUTH THREE TIMES A DAY NEEDED FOR HICCUPS 12/31/2021 Active omeprazole (PriLOSEC) [address] capsule Take 40 mg by mouth in the morning. 12/31/2021 Active Active Problems Problem Noted Date Diagnosed Date Periodontal disease 04/08/2023 Dental calculus 04/08/2023 Severe generalized gingival recession 04/08/2023 Gingival bleeding 04/08/2023 Encounters Date Type Department Care Team Description 08/16/2024 3:00 PM EDT Office Visit [facility] [address] [place] [id number] Pena-Martinez, Paula, DDS Full coverage crown needed for tooth at risk for fracture (Primary Dx) 07/30/2024 1:30 PM EDT Office Visit [facility] [address] [place] [address] Pena-Martinez, Paula, DDS Open fracture of tooth, initial encounter (Primary Dx) 07/22/2024 1:00 PM EDT Office Visit [facility] [address] [place] [address] Carla Ruffin Periodontal disease (Primary Dx); Severe generalized gingival recession; Dental calculus from Last 3 Months Immunizations Name Administration Dates Next Due Influenza Quadrivalent Adjuvanted 03/25/2022 Influenza injectable quadriv alent preservative free 02/18/2023,06/18/2021,06/15/2020 Pfizer Covid-19 Vaccine 12+ 03/07/2021 Pfizer Covid-19 Vaccine 12+ Bivalent 03/01/2022 Pneumococcal Conjugate PCV 20 07/16/2022 Tdap 11/17/2018 Zoster, Recombinant 11/01/2021,07/06/2021 Social History Tobacco Use Types Packs/Day Years Used Date Smoking Tobacco: Never Smokeless Tobacco: Never Tobacco Cessation:Counseling Given: Not Answered Sex and Gender Information Value Date Recorded Sex Assigned at Male 03/04/2022 10:16 AM EDT Legal Sex Male 10:16 AM EDT Gender Identity Male 03/04/2022 10:16 AM EDT Sexual Orientation Straight 03/04/2022 10 :16 AM EDT Last Filed Vital Signs Vital Sign Reading Time Taken Comments Blood Pressure 120/80 08/16/2024 2:28 PM EDT Pulse 66 07/30/2024 1:52 PM EDT Temperature - - Respiratory Rate - - Oxygen Saturation - - Inhaled Oxygen Concentration - - Weight - - Height - - Body Mass Index - - Plan of Treatment Upcoming Encounters Date Type Department Care Team (Late st Contact Info) Description 01/26/2025 1:00 PM EDT Office Visit [facility] [address] [place] [address] Carla Ruffin [address] [place] [address] Health Maintenance Due Date Last Done Comments CT Colonography 1955 Colonoscopy 1955 Colorectal Cancer Screening 1955 Depression Screening 1955 FIT DNA/Cologuard 1955 FIT 1955 FOBT 1955 Lipid Panel 1955 SDOH Screening 1955 Sigmoidoscopy 1955 Alcohol/Substance Use Screening 1967 Hepatitis C Screening 09/30/1973 COVID-19 Vaccine ( season) 2024 03/01/2022, 03/07/2021 Influenza Vaccine (#1) 2024 , 03/25/2022, 06/18/2021, Additional history exists Dental Oral Exam 07/15/2024 01/15/2024, 03/11/2023 Dental X-Ray: Bitewings 01/15/2025 01/15/2024, 03/11 Dental Prophylaxis 01/23/2025 07/22/2024, 0 01/15/2024, 04/08/2023 Tobacco Screening 08/16/2025 08/16/2024 Dental X-Ray: Full Mouth 01/15/2027 01/15/2024, 04/0 09/2020 DTaP/Tdap/Td Vaccines (2 - Td or Tdap) 11/17/2028 11/17/2018 RSV Patients and Patients Aged 60 years or older (1 - 1-dose 75+ series) 09/30/2030 Zoster Vaccines Completed 11/01/2021, 07/06/2021 Pneumococcal Vaccine: 50+ Years Completed 07/16/2022 HIB Vaccines Aged Out No longer eligi ble based on patient's age to complete this topic HPV Vaccines Aged Out No longer eligi ble based on patient's age to complete this topic Hepatitis A Vaccines Aged Out No long er eligible based on patient's age to complete this topic Hepatitis B Vaccines Aged Out No long er eligible based on patient's age to complete this topic IPV Vaccines Aged Out No longer eligi ble based on patient's age to complete this topic Meningococcal Vaccine Aged Out No eugenia aurora eligible based on patient's age to complete this topic RSV under 20 months Aged Out No longe r eligible based on patient's age to complete this topic Rotavirus Vaccines Aged Out No longer eligible based on patient's age to complete this topic Procedures Procedure Name Priority Date/Time Associated Diagnosis Comments INTRAORAL - PERIAPICAL FIRST RADIOGRAPHIC IMAGE Routine 08/16/2024 3:00 PM EDT 19 CROWN - PORCELAIN/CERAMIC Routine 08/16/2024 3:00 PM EDT CASE PRESENTATION, DETAILED AND EXTENSIVE TREATMENT PLANNING Routine 08/16/2024 3:00 PM EDT Full coverage crown needed for tooth at risk for fracture CASE PRESENTATION, DETAILED AND EXTENSIVE TREATMENT PLANNING Routine 07/30/2024 1:30 PM EDT Open fracture of tooth, initial encounter 19 CORE BUILDUP, INCL ANY PINS WHEN REQ Routine 07/30/2024 1:30 PM EDT Open fracture of tooth, initial encounter 19 CROWN PREP Routine 07/30/2024 1:30 PM EDT Open fracture of tooth, initial encounter ORAL HYGIENE INSTRUCTIONS Routine 07/22/2024 1:00 PM EDT Periodontal disease Severe generalized gingival recession Dental calculus PROPHYLAXIS - ADULT Routine 07/22/2024 1 :00 PM EDT Periodontal disease Severe generalized gingival recession Dental calculus INTRAORAL - COMPLETE SERIES OF RADIOGRAPHIC IMAGES Routine 01/15/2024 3:00 PM EDT Periodontal disease Dental calculus Severe generalized gingival recession Abfraction PERIODIC ORAL EVALUATION - ESTABLISHED PATIENT Routine 01/15/2024 3:00 PM EDT from Last 3 Months or Most Recently Relevant to Health Maintenance Insurance [facility] - [facility]
--- OUTSIDE RECORDS SUMMARY | 2024-09-09 07:38 | XMS_ITS | Encounter Summary ---
Author Organization [employer] [facility] Address [address] [facility] 7[address] [place] [address] Care Team Providers Care Child Caregiver Private Home Name Role Phone Unavailable Primary Care Provider Unavailabl e Encounter Details Date Type Department Care Team (Late st Contact Info) Description 03/14/2023 Abstract [facility] [address] [place] [address] Paula Prince DDS [address] [place] [address] Social History Tobacco Use Types Packs/Day Years Used Date Smoking Tobacco: Never Smokeless Tobacco: Never Sex and Gender Information Value Date Recorded Sex Assigned at Male 03/04/2022 10:16 AM EDT Legal Sex Male 10:16 AM EDT Gender Identity Male 03/04/2022 10:16 AM EDT Sexual Orientation Straight 03/04/2022 10 :16 AM EDT documented as of this encounter Plan of Treatment Upcoming Encounters Date Type Department Care Team (Late st Contact Info) Description 01/26/2025 1:00 PM EDT Office Visit [facility] [address] [place] [address] Carla Ruffin [address] [place] [address] documented as of this encounter Visit Diagnoses Not on filedocumented in this encounter
--- OUTSIDE RECORDS SUMMARY | 2024-09-09 07:38 | XMS_ITS | Encounter Summary ---
Author Organization [employer] [facility] Address [address] [facility] 7[address] [place] [address] Care Team Providers Care Guidance Secretary Name Role Phone Unavailable Primary Care Provider Unavailabl e Encounter Details Date Type Department Care Team (Latest Contact Info) Description 08/07/2020 Abstract [facility] CONVERSIONS Dental, Provider, DDS Social History Tobacco [...] Description 01/26/2025 1:00 PM EDT Office Visit [facility] [address] [place] [address] Jim Ruffinaris [address] [place] [address] documented as of this encounter Visit Diagnoses Not on filedocumented in this encounter
[2024-09-09 07:59] LABS: Hematocrit 41.3 % (42.0-52.0); Hemoglobin 14.5 g/dl (14.0-18.0); Mean Corpuscular HGB Conc 35.1 g/dl (31.0-36.0); Mean Corpuscular Hemoglobin 31.5 pg (27.0-33.0); Mean Corpuscular Volume 89.8 fL (80.0-98.0); Mean Platelet Volume 11.6 fL (9.4-12.4); Platelet Count 196 X10*3/uL (160-400); Red Cell Distribution Width 12.7 % (11.0-16.0); White Blood Count 6.2 X10*3/uL (4.8-10.8)
[2024-09-09 08:19] LABS: Alanine Aminotransferase 28 U/L (0-40); Albumin Level 4.2 g/dL (3.5-5.0); Alkaline Phosphatase 100 U/L (39-117); Anion Gap 11 (12-20); Aspartate Amino Transferase 25 U/L (5-37); Bilirubin Direct 0.4 mg/dL (0.0-0.5); Bilirubin Total 0.9 mg/dL (0.0-1.0); Blood Urea Nitrogen 12 mg/dL (9-16); Calcium 9.4 mg/dL (8.4-10.2); Carbon Dioxide 23 mmol/L (22-29); Chloride 106 mmol/L (96-108); Cholesterol 143 mg/dL (<200); Estimated Glomerular Filt Rate > 60; Glucose Fasting 97 mg/dL (60-99); HDL Cholesterol 37 mg/dL (>40); LDL Cholesterol Calculated 77 mg/dL (<100); Potassium 3.5 mmol/L (3.3-5.1); Sodium 136 mmol/L (135-145); Total Protein 7.2 g/dL (6.5-8.0); Triglycerides 149 mg/dL (<150)
[2024-09-09 08:39] LABS: Prostate Specific Antigen Scr 0.99 ng/mL (<0.05-4.0)
== END 2024-09-09 07:36 | disposition home or self-care (01) ==
LOC: HO.LAB 07:35
PROVIDERS: PCP Physician Assistant; Visit Provider Physician Assistant
DX: E78.2 Mixed hyperlipidemia (principal); B35.1 Tinea unguium; Z12.5 Encounter for screening for malignant neoplasm of prostate
CPT/HCPCS: 36415; 80053; 80061; 80076; 82248; 84153; 85027

== ENCOUNTER 2024-09-16 15:21 | Outpatient (AMB) | payer OTHER, SELFPAY ==
--- NOTE | 2024-09-16 15:45 | A.OFFPC_ITS ---
Vital Signs 09/16/24 15:46 Height 5 ft 7 in Weight 181 lb 8 oz BMI 28.4 BP 92/68 Blood Pressure Location Lt brachial Position Sitting Pulse 65 Pulse Source Pulse Oximeter Temp 96.9 F Temp Source Temporal Artery Scan Pulse Oximetry (%) 95 Oxygen Delivery Method Room Air Intake Visit Reasons: annual physical - see comments Boat Fueler Required: No Accompanied by: Sister Allergies No Known Allergies Allergy (Verified 09/16/24 15:54) Medication List - Last Reconciled 09/16/24 by Yakov Dai PA-C atorvastatin 10 mg PO DAILY 90 days quetiapine 200 mg PO BEDTIME risperidone 2 mg PO BEDTIME sertraline 50 mg PO DAILY terbinafine HCl 250 mg PO DAILY 3 months Tobacco use date assessed: 09/16/24 Fall risk assessment: No Falls in past year Last assessed Fall Risk: 09/16/24 Dental Screening Dental Screen Date: 09/16/24 Did you have a dental visit in the last 12 months?: Yes Did you have a dental problem in the last 6 months where you did not have access to dental care?: No Was dental information given to patient?: Patient has dentist HPI annual physical - see comments HPI Details Patient is a 68 -year-old male here today for annual physical. Presents today with his sister whom keeps a close eye on him. ?Past medical history significant for depression, schizophrenia. Schizophrenia: Continues to follow a mental health med provider over the phone via telehealth, continues to be adherent to all of his mental health medication and feels stable. .. Hyperlipidemia: Recent labs noted excellent control of his total cholesterol and LDL. He continues on atorvastatin 10 mg with good effect. .. Vaccine : UTD with flu vaccine, TDap, up-to-date with COVID vaccine, up-to-date with shingles vaccine needs pneumonia vaccine. . .. Colonoscopy:? Patient received screening colonoscopy in 2020 repeat 5 years Laboratory Tests 07/24/23 09/09/24 08:49 07:45 RBC 4.60 Creatinine 0.99 Fasting Glucose 103 H 97 Triglycerides 181 H 149 Cholesterol 271 H 143 PSA Screen 0.93 0.99 PFSH Medical History Depression Schizophrenia Helicobacter pylori (H. pylori) Surgical History H/O colonoscopy History of esophagogastroduodenoscopy (EGD) History of appendectomy Family History Father Emphysema lung Mother Kidney disease Sister Hypertension Cancer Brother No problems noted. Maternal Uncle Cancer Maternal Aunt Cancer Social History Household Members: None Housing: Apartment Are you a primary hospice spiritual care coordinator to a significant other at home: No Do you presently have visiting nurse or other home services: No Alcohol intake: never Patient Tobacco Use Status: Former Tobacco user e-Cigarette/Vaping Use: Never Used Substance Use Type: Crack/Cocaine service: No Current occupational status: retired Cognitive needs: No Hearing needs: No Vision needs: No Questionnaire PHQ-9 Over the last 2 weeks, how often have you been bothered by any of the following problems? 1. Little interest or pleasure in doing things: not at all 2. Feeling down, depressed, or hopeless: not at all 3. Trouble falling or staying asleep, or sleeping too much: not at all 4. Feeling tired or having little energy: not at all 5. Poor appetite or overeating: not at all 6. Feeling bad about yourself - or that you are a failure or have let yourself or your family down: not at all 7. Trouble concentrating on things, such as reading the newspaper or watching television: not at all 8. Moving or speaking so slowly that other people could have noticed. Or the opposite - being so fidgety or restless that you have been moving around a lot more than usual: not at all 9. Thoughts that you would be better off or of hurting yourself in some way: not at all Total score: 0 Depression Screening Interpretation: Negative Depression Screening Done: Yes 48257 - PHQ-9 Billing: Yes Source: Developed by Drs. Juan Antonio Clemente, nAsley Jamison, Oscar Fallon and colleagues, with an educational chester from [employer]. Thrive Questionnaire Date Thrive assessed: 09/16/24 I am a: Patient What is your living situation today?: I have a steady place to live Within the past 12 months, did the food you bought not last and you didn't have the money to get more?: Never true Within the past 12 months, did you worry whether your food would run out before you got money to buy more?: Never true Do you have trouble paying for medicines?: No Do you have trouble getting transportation to medical appointments?: No Do you have trouble paying your heating and electricity bill?: No Do you have trouble taking care of your child, family member or friend?: No Do you have trouble with day-to-day activities such as bathing, preparing meals, shopping, managing finances, etc.?: No Are you currently unemployed and looking for a job?: No Are you interested in more education?: No Please select the resources that you would like help with: None Currently or been in a relationship where the following occur: No concerns reported THRIVE Score: 0 AUDIT C Alcohol Use Questionnaire (AUDIT-C) 1. How often do you have a drink containing alcohol?: Never 3. How often do you have six or more drinks on one occasion?: Never Total Score: 0 REYES-7 AMB Questionnaire REYES-7 Date REYES - 7 assessed: 09/16/24 Feeling nervous, anxious, or on edge: 0 = Not at all Not being able to stop or control worryin = Not at all Worrying too much about different things: 0 = Not at all Trouble relaxin = Not at all Being so restless that it is hard to sit still: 0 = Not at all Becoming easily annoyed or irritable: 0 = Not at all Feeling afraid as if something awful might happen: 0 = Not at all Total REYES-7 score (0-4 normal; 5-9 mild; 10-14 moderate; 15-21 severe): 0 Source: Developed by Drs. Juan Antonio Clemente, Ansley Jamison, Oscar Fallon and colleagues, with an educational chester from [employer]. REYES-7 Assessment Billing REYES-7 Assessment Tool: REYES-7 Assessment 26643 Review of Systems Const Denies body aches, Denies chills, Denies excessive sweating, Denies fatigue, Denies fever(s) and Denies headache(s) Eyes Denies blurry vision ENT Denies dysphagia, Denies vertigo, Denies dizziness, Denies headache(s), Denies hearing loss and Denies tinnitus Card Denies chest pain, Denies chest pain with activity, Denies syncope, Denies irregular heart rhythm and Denies dyspnea Resp Denies chest congestion, Denies cough, Denies hemoptysis, Denies dyspnea and Denies wheezing GI Denies abdominal pain, Denies melena, Denies hematochezia, Denies coffee ground emesis, Denies dysphagia, Denies diarrhea, Denies nausea and Denies vomiting Denies difficulty urinating, Denies dysuria, Denies urinary frequency, Denies urinary hesitancy and Denies urinary urgency Musc Denies arthralgias, Denies limited range of motion, Denies muscle cramps and Denies muscle weakness Skin/Breast Denies rash and Denies skin ulcer Neuro Denies Abnormal speech present, Denies confusion, Denies vertigo, Denies dizziness, Denies syncope, Denies headache(s), Denies memory loss and Denies seizure-like activity Psych Denies anxiety, Denies confusion, Denies depression, Denies memory loss, Denies panic attacks and Denies paranoia Endo Denies excessive sweating, Denies fatigue, Denies flushing, Denies polydipsia and Denies polyuria Aller/Immun Denies wheezing Physical exam (Primary Care) Vital Signs: Last Vital Signs Temp 96.9 F 09/16/24 15:46 Pulse 65 09/16/24 15:46 BP 92/68 09/16/24 15:46 Pulse Ox 95 09/16/24 15:46 Oxygen Delivery Method Room Air 09/16/24 15:46 BMI result Body Mass Index 28.4 Tobacco/Smoking Status: Tobacco use Status Tobacco use date assessed 09/16/24 09/16/24 15:49 Patient Tobacco Use Status Former Tobacco user 09/16/24 15:46 e-Cigarette/Vaping Use Never Used 09/16/24 15:46 PHQ-9: PHQ-9 Score PHQ-9: Total score 0 09/16/24 15:59 Depression Screening Interpretation: Negative Thrive Assessment: Date of Thrive Assessment Date Thrive assessed 09/16/24 09/16/24 15:49 Currently or been in a relationship where the following occur: No concerns reported Const General: cooperative, comfortable, no acute distress, alert and awake; No confusion Orientation/consciousness: oriented to person, oriented to place, patient elena ented x3 and No confusion HENMT Head: Yes normocephalic Ears: external ears normal and TM's normal bilaterally Face and sinus: No sinus tenderness Mouth: Normal oral and palatal mucosa present and tongue normal Teeth and gingiva: dentition normal and gingiva normal Throat: Yes posterior oropharynx normal, Yes tonsils normal and Yes uvula midline Eyes Conjunctivae: conjunctivae normal Sclerae: sclerae normal Pupils: Equal, round and reactive pupils present EOM: EOMs intact bilaterally Direct Ophthalmoscopy: No no photophobia Neck Neck: Yes no lymphadenopathy, No tender and Yes no JVD Thyroid: Thyroid normal Carotids: no bruits Chest Chest palpation & inspection: no tenderness Resp Effort & Inspection: normal respiratory effort, no audible wheezes, not labored and no stridor Auscultation: no crackles, no rales, no rhonchi and no wheezes Cardio Jugular venous distension: no JVD Rate: regular rate, not bradycardic and not tachycardic Rhythm: regular rhythm Bruits: no carotid bruits Peripheral pulses: Peripheral pulses 2+ throughout GI Inspection: Yes normal to inspection, No abdominal wall ecchymosis and No visible herniation Palpation (GI): Soft to palpation, nontender, no guarding, not rigid and No hepatosplenomegaly present Auscultation: normoactive bowel sounds General: Yes no CVA tenderness Back/Spine/Pelvis Back: no CVA tenderness and No back tenderness Cervical Spine: cervical ROM normal Thoracic/Lumbar Spine: thoracic and lumbar spine normal to inspection, straight leg raise negative bilaterally, No thoraco-lumbar ROM limited and No lumbar spinal tenderness Skin Lesions: no lesions Rashes: no rashes Wounds: no wounds Neuro General: oriented to person, oriented to place, patient oriented x3, CN's II-XI intact bilaterally and No confusion Cranial nerves: Yes Equal, round and reactive pupils present and Yes Normal accommodation reflex present Cognition (Neuro): normal cognition Speech: No Abnormal speech present Gait exam (Neuro): Normal gait present Motor exam (neuro): 5/5 motor strength present throughout Extrem Right upper extremity: full ROM; no cyanosis Left upper extremity: full ROM; no cyanosis Right lower extremity: no edema Left lower extremity: no edema Psych Appearance: grossly normal Mental Status: mental status grossly normal Affect: normal affect Attitude: cooperative Thought process: Normal thought process present Coding Level of Care Code Est Pt Prev Care >65y(77240) Diagnoses Annual physical exam Z00.00 Schizoaffective disorder, depressive type F25.1 Schizoaffective disorder type: depressive Mixed hyperlipidemia E78.2 Hyperlipidemia type: mixed hyperlipidemia Benign skin lesion of nose L98.9 Additional Codes REYES-7 Assessment Billing - REYES-7 Assessment Tool: REYES-7 Assessment 33102 ([id number]) PHQ-9 - 71922 - PHQ-9 Billing: Yes ([id number]) Assessment & Plan Assessment & Plan (1) Annual physical exam: Code(s): Z00.00 - Encounter for general adult medical examination without abnormal findings Category: Medical Plan: as per HPI (2) Schizoaffective disorder: Code(s): F25.9 - Schizoaffective disorder, unspecified Category: Medical Qualifiers: Schizoaffective disorder type: depressive Qualified Code(s): F25.1 - Schizoaffective disorder, depressive type Plan: Continues to follow is a psychiatrist whom manages his mental health medications. He feels stable on current doses of his mental health medications. Otherwise denies any SI or HI (3) HLD (hyperlipidemia): Code(s): E78.5 - Hyperlipidemia, unspecified Category: Medical Qualifiers: Hyperlipidemia type: mixed hyperlipidemia Qualified Code(s): E78.2 - Mixed hyperlipidemia Plan: Patient's most recent lipid panel showing excellent control of his total cholesterol and LDL. He continues on atorvastatin 10 mg. Will continue to follow and if LDL above 190 will consider starting statin therapy (4) Benign skin lesion of nose: Code(s): L98.9 - Disorder of the skin and subcutaneous tissue, unspecified Category: Medical Plan: Has noted a skin lesion over his nose he would like investigated by Dermatology. Orders: Orders Comprehensive [place]. Panel Fast Today E78.2 - Mixed hyperlipidemia Complete Blood Count no Diff Today E78.2 - Mixed hyperlipidemia Lipid Panel Today E78.2 - Mixed hyperlipidemia Vitamin B12 and Folate Today E53.8 - Deficiency of other specified B group vitamins, F25.1 - Schizoaffective disorder, depressive type, R41.3 - Other amnesia Vitamin D 25-OH Total Today F25.1 - Schizoaffective disorder, depressive type, R41.3 - Other amnesia TSH reflex Free T4 Today F25.1 - Schizoaffective disorder, depressive type, R41.3 - Other amnesia Referrals Dermatology Referral L98.9 - Disorder of the skin and subcutaneous tissue, unspecified Medications: Refilled atorvastatin 10 mg PO DAILY 90 days 90 tabs 1RF E78.2 - Mixed hyperlipidemia
[2024-09-16 15:46] VITALS: BP 92/68; PULSE 65; TEMP 36.1; O2SAT 95; BMI 28.4
--- OUTSIDE RECORDS SUMMARY | 2024-09-16 15:52 | XMS_ITS | Encounter Summary ---
Author Organization [employer] [facility] Address [address] [facility] [address] [place] [address] Care Team Providers Care Pullman Car Repairer Name Role Phone Unavailable Primary Care Provider Unavailabl e Encounter Details Date Type Department Care Team (Latest Contact Info) Description 02/07/2022 Abstract [facility] CONVERSION[facility] Dental, Provider, DDS Social History Tobacco [...] Description 01/26/2025 1:00 PM EDT Office Visit [facility] [address] [place] [address] Jim Ruffinaris [address] [place] [address] documented as of this encounter Visit Diagnoses Not on filedocumented in this encounter
--- OUTSIDE RECORDS SUMMARY | 2024-09-16 15:52 | XMS_ITS | Encounter Summary ---
Author Organization [employer] [facility] Address [address] [facility] [address]t [place] [address] Care Team Providers Care Sweeper Cleaner Industrial Name Role Phone Unavailable Primary Care Provider Unavailabl e Encounter Details Date Type Department Care Team (Late st Contact Info) Description 03/14/2023 Abstract [facility] [address] [place] [address] Paula Prince DDS [address] [place] [address] Social History Tobacco Use Types Packs/Day Years [...] 1:00 PM EDT Office Visit [facility] [address] [place] [address] Carla Ruffin [address] [place] [address] documented as of this encounter Visit Diagnoses Not on filedocumented in this encounter
--- OUTSIDE RECORDS SUMMARY | 2024-09-16 15:52 | XMS_ITS | Encounter Summary ---
Author Organization [employer] [facility] Address [address] [facility] [address] [place] [address] Care Team Providers Care Bottoming Room Inspector Name Role Phone Unavailable Primary Care Provider Unavailabl e Encounter Details Date Type Department Care Team (Latest Contact Info) Description 08/07/2020 Abstract [facility] CONVERSIONS Dental, Provider, DDS Social History [...] Description 01/26/2025 1:00 PM EDT Office Visit [facility] [address] [place] [address] Jim Ruffinaris [address] [place] [address] documented as of this encounter Visit Diagnoses Not on filedocumented in this encounter
--- OUTSIDE RECORDS SUMMARY | 2024-09-16 15:52 | XMS_ITS | Clinical Summary ---
Author Organization [employer] Address [address] [place] [address] Care Team Providers Care Estate Agent Name Role Phone Unavailable Primary Care Provider [...] Description 08/16/2024 3:00 PM EDT Office Visit [facility] [address] [place] [id number] Pena-Martinez, Paula, DDS Full coverage crown needed for tooth at risk for fracture (Primary Dx) 07/30/2024 1:30 PM EDT Office Visit [facility] [address] [place] [address] Pena-Martinez, Paula, DDS Open fracture of tooth, initial encounter (Primary Dx) 07/22/2024 1:00 PM EDT Office Visit [facility] [address] [place] [address] Crala Ruffin Periodontal disease (Primary Dx); Severe generalized gingival recession; Dental calculus from Last 3 Months Immunizations Immunization Administration Dates Next Due Influenza Quadrivalent Adjuvanted [...] 1:00 PM EDT Office Visit [facility] [address] [place] [address] Carla Ruffin [address] [place] [address] Health Maintenance Due Date Last Done Comments [...] patient's age to complete this topic Meningococcal B Vaccine Aged Out No l onger eligible based on patient's age to complete [...] Most Recently Relevant to Health Maintenance Insurance [facility] DUAL COMPLETE DENTAL - [facility] SCO
== END 2024-09-16 16:14 | disposition home or self-care (01) ==
LOC: HO.HMCH 15:22
PROVIDERS: PCP Physician Assistant; Visit Provider Physician Assistant
DX: Z00.00 Encounter for general adult medical examination without abnormal findings (principal); F25.1 Schizoaffective disorder, depressive type; E78.2 Mixed hyperlipidemia; L98.9 Disorder of the skin and subcutaneous tissue, unspecified

== ENCOUNTER → 2024-09-16 15:21 | Outpatient (BNVA) | payer OTHER, SELFPAY | PROVIDERS: PCP Physician Assistant; Visit Provider Physician Assistant | DX: Z00.00 Encounter for general adult medical examination without abnormal findings (principal); F25.1 Schizoaffective disorder, depressive type; E78.2 Mixed hyperlipidemia; L98.9 Disorder of the skin and subcutaneous tissue, unspecified | CPT/HCPCS: 96127; 99397 ==

== ENCOUNTER 2025-03-22 13:26 | Outpatient (AMB) | payer OTHER, SELFPAY ==
--- NOTE | 2025-03-22 13:39 | MHC.PC.OV ---
Vital Signs 03/22/25 13:40 Height 5 ft 7 in Weight 184 lb BMI 28.8 BP 130/60 Blood Pressure Location Lt brachial Position Sitting Pulse 60 Pulse Source Pulse Oximeter Temp 97.1 F Temp Source Temporal Artery Scan Pulse Oximetry (%) 95 Oxygen Delivery Method Room Air Intake Visit Reasons: f/u labs Intake Note: Patient is here to follow up on Discuss Lab . Duct Cleaner Required: Yes Duct Cleaner Language: Spectrographic Analyst Name: Deirdre (sister) Information Interpreted: non-clinical & clinical (Pt decline medical scientific liaison service prefer sister to translate for him) [employer] Humanities Teacher: Present Accompanied by: Sister Allergies No Known Allergies Allergy (Verified 03/22/25 14:06) Medication List - Last Reconciled 03/22/25 by Yakov Dai PA-C atorvastatin 10 mg PO DAILY 90 days quetiapine 200 mg PO BEDTIME risperidone 2 mg PO BEDTIME sertraline 50 mg PO DAILY Tobacco use date assessed: 03/22/25 Fall risk assessment: No Falls in past year Last assessed Fall Risk: 03/22/25 Dental Screening Dental Screen Date: 09/16/24 HPI f/u labs HPI Details Patient is a 69 -year-old male here today for follow-up visit.. Presents today with his sister whom keeps a close eye on him. ?Past medical history significant for depression, schizophrenia, hyperlipidemia. .. Schizophrenia: Continues to follow a mental health med provider over the phone via telehealth, continues to be adherent to all of his mental health medication and feels stable. .. Hyperlipidemia: Recent labs noted excellent control of his total cholesterol and LDL. He continues on atorvastatin 10 mg with good effect. Laboratory Tests 09/09/24 07:45 RBC 4.60 Creatinine 0.99 Triglycerides 149 Cholesterol 143 LDL Cholesterol, C alc 77 [facility] Medical History Depression Schizophrenia Helicobacter pylori (H. pylori) Surgical History H/O colonoscopy History of esophagogastroduodenoscopy (EGD) History of appendectomy Family History Father Emphysema lung Mother Kidney disease Sister Hypertension Cancer Brother No problems noted. Maternal Uncle Cancer Maternal Aunt Cancer Social History Household Members: None Housing: Apartment Are you a primary direct care provider to a significant other at home: No Do you presently have visiting nurse or other home services: No Alcohol intake: never Patient Tobacco Use Status: Former Tobacco user e-Cigarette/Vaping Use: Never Used Second Hand Smoke Exposure: Yes Substance Use Type: Crack/Cocaine service: No Current occupational status: retired Cognitive needs: No Hearing needs: No Vision needs: No Questionnaire Thrive Questionnaire Date Thrive assessed: 09/16/24 I am a: Patient What is your living situation today?: I have a steady place to live Within the past 12 months, did the food you bought not last and you didn't have the money to get more?: Never true Within the past 12 months, did you worry whether your food would run out before you got money to buy more?: Never true Do you have trouble paying for medicines?: No Do you have trouble getting transportation to medical appointments?: No Do you have trouble paying your heating and electricity bill?: No Do you have trouble taking care of your child, family member or friend?: No Do you have trouble with day-to-day activities such as bathing, preparing meals, shopping, managing finances, etc.?: No Are you currently unemployed and looking for a job?: No Are you interested in more education?: No Please select the resources that you would like help with: None Currently or been in a relationship where the following occur: No concerns reported THRIVE Score: 0 REYES-7 AMB Questionnaire REYES-7 Date REYES - 7 assessed: 09/16/24 Source: Developed by Drs. Juan Antonio Clemente, Ansley Jamison, Oscar Fallon and colleagues, with an educational chester from [employer]. Review of Systems Const Denies excessive sweating, Denies fatigue and Denies headache(s) Eyes Denies loss of vision ENT Denies vertigo, Denies dizziness, Denies headache(s) and Denies sore throat Card Denies chest pain, Denies leg edema and Denies lightheadedness Resp Denies cough, Denies hemoptysis and Denies wheezing GI Denies abdominal pain, Denies melena, Denies constipation, Denies diarrhea and Denies vomiting Denies dysuria, Denies urinary frequency and Denies urinary urgency Musc Denies arthralgias, Denies joint swelling, Denies numbness and Denies tingling Skin/Breast Denies rash and Denies skin ulcer Neuro Denies Abnormal speech present, Denies behavioral changes, Denies vertigo, Denies dizziness, Denies headache(s), Denies loss of vision, Denies memory loss, Denies numbness and Denies tingling Psych Denies anxiety, Denies behavioral changes, Denies depression, Denies memory loss and Denies panic attacks Endo Denies excessive sweating, Denies fatigue, Denies flushing, Denies polydipsia and Denies polyuria Andres/Lymph Denies easy bleeding and Denies easy bruising Aller/Immun Denies wheezing Physical exam (Primary Care) Vital Signs: Last Vital Signs Temp 97.1 F 03/22/25 13:40 Pulse 60 03/22/25 13:40 BP 130/60 03/22/25 13:40 Pulse Ox 95 03/22/25 13:40 Oxygen Delivery Method Room Air 03/22/25 13:40 BMI result Body Mass Index 28.8 Tobacco/Smoking Status: Tobacco use Status Tobacco use date assessed 03/22/25 03/22/25 13:51 Patient Tobacco Use Status Former Tobacco user 03/22/25 13:51 e-Cigarette/Vaping Use Never Used 03/22/25 13:51 Thrive Assessment: Date of Thrive Assessment Date Thrive assessed 09/16/24 03/22/25 13:51 Currently or been in a relationship where the following occur: No concerns reported Const General: healthy appearing, no acute distress, alert and awake Nutritional Appearance: well nourished Orientation/consciousness: oriented to person, oriented to place and oriented to time [facility] Head: Yes normocephalic Ears: TM's normal bilaterally General nose exam: Normal nasal mucous membranes and turbinates present Face and sinus: No sinus tenderness Mouth: Normal oral and palatal mucosa present and tongue normal Teeth and gingiva: dentition normal and gingiva normal Throat: Yes posterior oropharynx normal, Yes tonsils normal and Yes uvula midline Eyes Conjunctivae: conjunctivae normal Sclerae: sclerae normal Pupils: Equal, round and reactive pupils present EOM: EOMs intact bilaterally Direct Ophthalmoscopy: No no photophobia Neck Neck: Yes no lymphadenopathy and Yes no JVD Thyroid: Thyroid normal Carotids: no bruits Chest Chest palpation & inspection: no tenderness Resp Effort & Inspection: normal respiratory effort and not tachypneic Auscultation: no crackles, no rales, no rhonchi and no wheezes Cardio Jugular venous distension: no JVD Rate: regular rate Rhythm: regular rhythm Heart sounds: no murmurs and normal S1 and S2 Bruits: no carotid bruits Peripheral pulses: Peripheral pulses 2+ throughout GI Inspection: Yes normal to inspection, No abdominal wall ecchymosis and No visible herniation Palpation (GI): Soft to palpation, nontender, no hepatomegaly and no splenomegaly Auscultation: normal bowel sounds General: Yes no CVA tenderness Back/Spine/Pelvis Back: no CVA tenderness and No back tenderness Cervical Spine: cervical ROM normal Thoracic/Lumbar Spine: thoracic and lumbar spine normal to inspection, straight leg raise negative bilaterally, No thoraco-lumbar ROM limited and No lumbar spinal tenderness Skin General skin exam: no rashes or lesions noted and dry skin Lesions: no lesions Rashes: no rashes Wounds: no wounds Neuro General: oriented to person, oriented to place and oriented to time Cranial nerves: Yes Equal, round and reactive pupils present Cognition (Neuro): normal cognition Speech: No Abnormal speech present Gait exam (Neuro): Normal gait present Motor exam (neuro): no tremor noted Extrem Right upper extremity: full ROM Left upper extremity: full ROM Right lower extremity: full ROM; no edema Left lower extremity: full ROM; no edema Psych Appearance: grossly normal Mental Status: mental status grossly normal Speech and movement: Normal speech and movement present Affect: normal affect Attitude: cooperative Thought process: Normal thought process present Office Procedures Flu Questionnaire Does the patient have a severe egg allergy?: No Does the patient have severe life threatening allergies?: No Does the patient have a fever or illness today?: No Has the patient ever had Guillain-[place] Syndrome?: No Has the patient ever had any past reaction to a flu shot?: No Immunizations Fluarix [id number] (PF) 45 mcg (15 mcg x 3)/0.5 mL IM syringe Performing Provider: Yakov Dai PA-C [facility] Administered by: Delicia Zee LPN on 03/22/25 14:26 Dose Route Admin Location Dispensed Lot Number Expiration Date NDC Early Childhood Specialist 0.5 mL IM Left Deltoid 0.5 mL [id number] 11/01/25 75319-811-16 [place] VIS Given Date VIS Provided VIS Publication Date 03/22/25 Single Vaccine 24 Eligibility Eligibility Date Funding Source Not [facility] Eligible 03/22/25 Private Coding Level of Care Code Est Pt Level 4 (43552) Diagnoses Schizoaffective disorder, depressive type F25.1 Schizoaffective disorder type: depressive Mixed hyperlipidemia E78.2 Hyperlipidemia type: mixed hyperlipidemia Assessment & Plan Assessment & Plan (1) Schizoaffective disorder: Code(s): F25.9 - Schizoaffective disorder, unspecified Category: Medical Qualifiers: Schizoaffective disorder type: depressive Qualified Code(s): F25.1 - Schizoaffective disorder, depressive type Plan: Continues to follow is a psychiatrist whom manages his mental health medications. He feels stable on current doses of his mental health medications. Otherwise denies any SI or HI Of note will be leaving to [place] to see family for the holidays, would like medication to help him for his anxiety around flights. (2) HLD (hyperlipidemia): Code(s): E78.5 - Hyperlipidemia, unspecified Category: Medical Qualifiers: Hyperlipidemia type: mixed hyperlipidemia Qualified Code(s): E78.2 - Mixed hyperlipidemia Plan: Patient's most recent lipid panel showing excellent control of his total cholesterol and LDL. He continues on atorvastatin 10 mg. Will continue to follow and if LDL above 190 will consider starting statin therapy Orders: Orders Influenza [id number] Immunization 03/22/25 Z23 - Encounter for immunization Prostate Specific Antigen Scr 03/22/25 Z12.5 - Encounter for screening for malignant neoplasm of prostate Medications: New lorazepam To take prior to flights 0.5 mg PO DAILY PRN 2 tabs 0RF anxiety 2 days F41.9 - Anxiety disorder, unspecified
[2025-03-22 13:40] VITALS: BP 130/60; PULSE 60; TEMP 36.2; O2SAT 95; BMI 28.8
--- OUTSIDE RECORDS SUMMARY | 2025-03-23 06:26 | XMS_ITS | Encounter Summary ---
Author Organization [employer] [facility] Address [address] [place] [address] Care Team Providers Care Chemistry Department Chair Name Role Phone Unavailable Primary Care Provider Unavailabl e Encounter Details Date Type Department Care Team (Latest Contact Info) Description 08/07/2020 Abstract [facility] CONVERSIONS Dental, Provider, DDS Social History [...] Care Team (Late st Contact Info) Description 07/27/2025 12:45 PM EDT Office Visit [facility] [address] [place] [address] Carla Ruffin [address] [place] [address] documented as of this encounter Visit Diagnoses Not on filedocumented in this encounter
--- OUTSIDE RECORDS SUMMARY | 2025-03-23 06:26 | XMS_ITS | Encounter Summary ---
Author Organization [employer] [facility] Address [address] [facility] [address] [facility] [address] [place] [address] Care Team Providers Care Wet Trimmer Name Role Phone Unavailable Primary Care Provider Unavailabl e Encounter Details Date Type Department Care Team (Latest Contact Info) Description 02/07/2022 Abstract [facility] CONVERSIONS Dental, Provider, DDS Social History [...] Description 07/27/2025 12:45 PM EDT Office Visit [facility] [address] [place] [address] Jim Ruffinaris [address] [place] [address] documented as of this encounter Visit Diagnoses Not on filedocumented in this encounter
--- OUTSIDE RECORDS SUMMARY | 2025-03-23 06:26 | XMS_ITS | Clinical Summary ---
Author Organization [employer] Address [address] [place] [address] Care Team Providers Care Blow Torch Operator Name Role Phone Unavailable Primary Care Provider [...] Encounters Date Type Department Care Team Description 02/23/2025 1:30 PM EDT Office Visit [facility] [address] [place] [address] Pena-Martinez, Paula, DDS Abfraction (Primary Dx) 01/31/2025 10:00 AM EDT Office Visit [facility] [address] [place] [address] Pena-Martinez, Paula, DDS Abfraction (Primary Dx) 01/26/2025 1:00 PM EDT Office Visit [facility] [address] [place] [address] Carla Ruffin Teeth missing (Primary Dx); Abfraction; Severe generalized gingival recession; Dental calculus; Dental abscess; Encounter for dental examination from Last 3 Months Immunizations Immunization Administration [...] Sign Reading Time Taken Comments Blood Pressure 126/82 02/23/2025 1:37 PM EDT Pulse 68 02/23/2025 1:37 PM EDT Temperature - - Respiratory Rate - - Oxygen Saturation - - Inhaled Oxygen Concentration - - Weight - - Height - - Body Mass Index - - Plan of Treatment Upcoming Encounters Date Type Department Care Team (Late st Contact Info) Description 07/27/2025 12:45 PM EDT Office Visit [facility] [address] [place] [address] Carla Ruffin [address] [place] [address] Health Maintenance Due Date Last Done Comments CT Colonography 1955 Colonoscopy 1955 Colorectal Cancer Screening 1955 Depression Screening 1955 FIT DNA/Cologuard 1955 FIT 1955 FOBT 1955 Lipid Panel 1955 SDOH Screening 1955 Sigmoidoscopy 1955 Alcohol/Substance Use Screening 1967 Hepatitis C Screening 09/30/1973 COVID-19 Vaccine ( season) 2025 03/01/2022, 03/07/2021 Influenza Vaccine (#1) 2025 , 03/25/2022, 06/18/2021, Additional history exists Dental Oral Exam 07/27/2025 01/26/2025, 04/2024, 03/11/2023 Dental Prophylaxis 07/27/2025 01/26/2025, 0 07/22/2024, 01/15/2024, Additional history exists Dental X-Ray: Bitewings 01/27/2026 01/27/20, 01/15/2024, 03/11/2023 Tobacco Screening 02/23/2026 02/23/2025 Dental X-Ray: Full Mouth 01/15/2027 01/15/2024, 04/0 [...] Procedure Name Priority Date/Time Associated Diagnosis Comments CASE PRESENTATION, DETAILED AND EXTENSIVE TREATMENT PLANNING Routine 02/23/2025 1:30 PM EDT 12 B(V) RESIN-BASED COMPOSITE - 1 SURF, POSTERIOR Routine 02/23/2025 1:30 PM EDT Abfraction 13 B(V) RESIN-BASED COMPOSITE - 1 SURF, POSTERIOR Routine 02/23/2025 1:30 PM EDT Abfraction 28 B(V) RESIN-BASED COMPOSITE - 1 SURF, POSTERIOR Routine 02/23/2025 1:30 PM EDT CASE PRESENTATION, DETAILED AND EXTENSIVE TREATMENT PLANNING Routine 01/31/2025 10:00 AM EDT 3 BB(V) RESIN-BASED COMPOSITE - 1 SURF, POSTERIOR Routine 01/31/2025 10:00 AM EDT Abfraction 4 BB(V) RESIN-BASED COMPOSITE - 1 SURF, POSTERIOR Routine 01/31/2025 10:00 AM EDT Abfraction 6 FF(V) RESIN-BASED COMPOSITE - 1 SURF, ANTERIOR Routine 01/31/2025 10:00 AM EDT Abfraction 5 BB(V) RESIN-BASED COMPOSITE - 1 SURF, POSTERIOR Routine 01/31/2025 10:00 AM EDT Abfraction COMPREHENSIVE PERIODONTAL EVALUATION - NEW OR ESTABLISHED PATIENT Routine 01/26/2025 1:00 PM EDT Teeth missing Abfraction Severe generalized gingival recession Dental calculus Dental abscess Encounter for dental examination PERIODIC ORAL EVALUATION - ESTABLISHED PATIENT Routine 01/26/2025 1:00 PM EDT Teeth missing Abfraction Severe generalized gingival recession Dental calculus Dental abscess Encounter for dental examination Full TOPICAL APPLICATION OF FLUORIDE VARNISH Routine 01/26/2025 1:00 PM EDT Abfraction Severe generalized gingival recession PROPHYLAXIS - ADULT Routine 01/26/2025 1 :00 PM EDT Dental abscess ORAL HYGIENE INSTRUCTIONS Routine 2024 1:00 PM EDT Teeth missing Abfraction Severe generalized gingival recession Dental calculus Dental abscess INTRAORAL - PERIAPICAL EACH ADDITIONAL RADIOGRAPHIC IMAGE Routine 01/26/2025 1:00 PM EDT Teeth missing Severe generalized gingival recession Dental calculus INTRAORAL - PERIAPICAL FIRST RADIOGRAPHIC IMAGE Routine 01/26/2025 1:00 PM EDT Dental abscess BITEWINGS - 4 RADIOGRAPHIC IMAGES Routine 01/26/2025 1:00 PM EDT Teeth missing Abfraction Severe generalized gingival recession Dental calculus INTRAORAL - COMPLETE SERIES OF RADIOGRAPHIC IMAGES Routine 01/15/2024 3:00 PM EDT Periodontal disease Dental calculus Severe generalized gingival recession Abfraction from Last 3 Months or Most Recently Relevant to Health Maintenance Insurance [facility] D[facility] COM[facility]TE D[facility]AL - [facility] SCO
--- OUTSIDE RECORDS SUMMARY | 2025-03-23 06:26 | XMS_ITS | Encounter Summary ---
Author Organization [employer] [facility] Address [address] [facility] [address] [facility] [address] [place] [address] Care Team Providers Care Territory Account Manager Name Role Phone Unavailable Primary Care Provider Unavailabl e Encounter Details Date Type Department Care Team (Late st Contact Info) Description 03/14/2023 Abstract [facility] [address] [place] [address] Paula Prince DDS [address] [place] [address] Social History Tobacco Use Types Packs/Day Years [...] Description 07/27/2025 12:45 PM EDT Office Visit [facility] [address] [place] [address] Carla Rufifn [address] [place] [address] documented as of this encounter Visit Diagnoses Not on filedocumented in this encounter
== END 2025-03-22 14:26 | disposition home or self-care (01) ==
LOC: HO.HMCH 13:27
PROVIDERS: PCP Physician Assistant; Visit Provider Physician Assistant
DX: F25.1 Schizoaffective disorder, depressive type (principal); E78.2 Mixed hyperlipidemia

== ENCOUNTER → 2025-03-22 13:26 | Outpatient (BNVA) | payer OTHER, SELFPAY | PROVIDERS: PCP Physician Assistant; Visit Provider Physician Assistant | DX: E78.2 Mixed hyperlipidemia (principal); F32.A Depression, unspecified; F25.1 Schizoaffective disorder, depressive type; F41.9 Anxiety disorder, unspecified; Z23 Encounter for immunization | CPT/HCPCS: 90471; 90656; 99212 ==